=== PATIENT | female | born 1945 | race Caucasian/White ===

== ENCOUNTER → 2016-12-24 | Day surgery (SDC) | payer MEDICARE, BC ==
[~2016-12-24] MED LIST: Lactated Ringers 1,000 ML IV SCH; Propofol 200 MG/20 ML SDV IV ONE
[2016-12-24 11:29] VITALS: BP 118/74
--- NOTE | 2016-12-24 13:16 | OR ---
DATE OF OPERATION: 12/24/2016 PREOPERATIVE DIAGNOSIS: PERSISTENT GASTROESOPHAGEAL REFLUX DISEASE. POSTOPERATIVE DIAGNOSIS: PERSISTENT GASTROESOPHAGEAL REFLUX DISEASE. SURGEON: Sumeet Cline MD PROCEDURE: ESOPHAGOGASTRODUODENOSCOPY WITH BIOPSY X2, RANDI. 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 COMPLICATIONS: None. SPECIMEN: 1. Distal esophageal biopsy x2. 2. RANDI. FINDINGS: 1. Full-length EGD. 2. Large hiatal hernia with reflux esophagitis, grade 1. RECOMMENDATIONS: Medical follow up with Dr. Graham, consideration for possible laparoscopic Marguerite. INDICATIONS: The patient has been having ongoing issues with belching and heartburn, and epigastric discomfort. Dr. Graham, sent her for EGD. DESCRIPTION OF PROCEDURE: The patient was prepped and draped, placed in the left lateral decubitus position. A lubricated Olympus gastroscope was inserted over a bit, advanced into cricopharyngeus area, and easily intubated in the esophagus. Esophageal lining was benign until its most distal course. The patient has grade 1 esophagitis with some linear inflammation. No obvious ulceration. No stricturing or Guzman's changes seen. There is a large hiatal hernia with the Z-line present around 30 cm. The scope was advanced into the stomach through the pylorus and into the third portion of the duodenum. The second and third portion of duodenum along with the duodenal bulb appears completely benign. The scope was brought back into the stomach and retroflexed. The hernia was easily visualized from below and is quite large. The upper fundus and cardia appeared unremarkable. Upon straightening, the rest of the gastric lining showed no signs of any polyps, masses, ulcerations, or peptic ulcer disease. A CLOtest was obtained. Air was then suctioned from the stomach. The scope was brought back into the distal esophagus. Biopsy x2, the affected area of esophagus was taken. The scope was removed without complication. GUERLINE/JAIME /[id number]
== END ==
LOC: CC.SDS 09:17
PROVIDERS: ATTEND Family Medicine
DX: K21.0 Gastro-esophageal reflux disease with esophagitis (principal); K44.9 Diaphragmatic hernia without obstruction or gangrene
CPT/HCPCS: 43239; 87081; J2704; J7120; 00740; 88305; 88312

== ENCOUNTER → 2017-01-14 | Day surgery (SDC) | payer MEDICARE, BC ==
[2017-01-14 10:54] VITALS: BP 138/73
--- NOTE | 2017-01-17 07:47 | OR ---
DATE OF OPERATION: 01/14/2017 PREOPERATIVE DIAGNOSIS: POSITIVE COLOGUARD. POSTOPERATIVE DIAGNOSIS: POSITIVE COLOGUARD. SURGEON: Sumeet Cline MD PROCEDURE: FULL-LENGTH COLONOSCOPY WITH BIOPSIES X3. 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 COMPLICATIONS: None. SPECIMEN: 1. Rectosigmoid biopsy x2. 2. Rectal biopsy x1. FINDINGS: 1. Full-length colonoscopy. 2. Distal proctitis/colitis. Rectosigmoid junction/rectal vault, nonspecific and mild. RECOMMENDATIONS: Medical follow up with Dr. Graham. INDICATIONS: The patient apparently did a Cologuard at home and it was positive. She presented to Dr. Graham, and he recommended colonoscopy, it has been approximately seven years since her last one. DESCRIPTION OF PROCEDURE: The patient was prepped and draped, placed in the left lateral decubitus position. A lubricated Olympus colonoscope was inserted and easily advanced to the cecum where we directly visualized the ileocecal valve and appendiceal orifice. The bowel prep was excellent. Upon withdrawal, thorough examination, the entire colon was accomplished without difficulty. The patient's right transverse and descending colon were completely benign. Throughout the entire length of the colon, I was unable to find any polyps, mass, or signs of malignancy. No significant diverticular disease was seen in the left colon, and no gross abnormalities. The patient did have focal areas of colitis extending from approximately the rectosigmoid junction and into the rectal vault. This was very mild and nonspecific without any obvious ulceration. Two biopsies were taken near the rectosigmoid junction, one in the rectal vault. Retroflexion scope in the rectum showed no anal lesions. Air was then suctioned. Scope removed without complication. GUERLINE/JAIME /[id number]
== END ==
LOC: CC.SDS 08:38
PROVIDERS: ATTEND Family Medicine
DX: K52.9 Noninfective gastroenteritis and colitis, unspecified (principal); K62.89 Other specified diseases of anus and rectum; E78.5 Hyperlipidemia, unspecified; E55.9 Vitamin D deficiency, unspecified; Z79.82 Long term (current) use of aspirin; Z79.899 Other long term (current) drug therapy; Z98.890 Other specified postprocedural states
CPT/HCPCS: 45380; J2704; J7120; 00810; 88305